=== PATIENT | female | born 1990 | race African-American/Black ===

== ENCOUNTER 2021-01-08 23:07 | Emergency (ER) | payer OTHER ==
[~2021-01-08] VITALS: Ht 170.2 cm; Wt 68.0 kg
[2021-01-08 23:15] VITALS: BP_SYST 138
--- NOTE | 2021-01-08 23:18 | NUR ---
Patient to ER bed 4 to gown for evaluation. Side rails up. Report given to Tommie GILMAN.
--- NOTE | 2021-01-08 23:30 | NUR ---
DR. TANNER AT BEDSIDE
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
[2021-01-08] MEDS ORDERED: LIDOCAINE 1%, 20 ML MDV 20 ML ONE (23:42)
[2021-01-08] MEDS ORDERED: LIDOCAINE 1% 10 MG/ML, 20 ML MDV INJ ONE (23:45)
--- NOTE | 2021-01-09 01:15 | NUR ---
Patient resting quietly. No acute distress noted. Vital signs within normal range.
--- NOTE | 2021-01-09 02:15 | NUR ---
dr. Tobar at bedside
[2021-01-09] MEDS ORDERED: AMOX500C2 PO (02:47)
[2021-01-09] MEDS ORDERED: IBUPROFEN 600 MG TABLET ONE (02:56)
[2021-01-09] MEDS ORDERED: IBUPROFEN 600 MG TABLET PO ONE (03:00)
[2021-01-09] MEDS ORDERED: AMOXICILLIN 500 MG CAPSULE PO ONE (03:00)
[2021-01-09 03:05] VITALS: BP_SYST 138
--- NOTE | 2021-01-09 03:05 | NUR ---
Patient given written and verbal discharge instructions and verbalizes understanding. ER MD discussed with patient the results and treatment provided. Patient in stable condition. ID arm band removed. Rx of AMOXICILLIN given. Patient educated on pain management and to follow up with PMD. Pain Scale 9/10. Opportunity for questions provided and answered. Medication side effect fact sheet provided.
== END 2021-01-09 03:05 | disposition home or self-care (01) ==
LOC: SED 23:07
DX: H61.121 Hematoma of pinna, right ear (principal); J45.909 Unspecified asthma, uncomplicated; F17.290 Nicotine dependence, other tobacco product, uncomplicated
CPT/HCPCS: 69000; 99283; J2001; 99284